=== PATIENT | female | born 1985 | race Caucasian/White ===

== ENCOUNTER 2016-07-17 23:01 | Emergency (ER) | payer MEDICAID ==
[~2016-07-17] VITALS: Ht 149.9 cm; Wt 72.0 kg
[~2016-07-17 23:01] MED LIST: IOHEXOL-350 100 ML BOTTLE ONE; SODIUM CHLORIDE 0.9% 10ML VIAL ONE
[2016-07-18] MEDS ORDERED: SODIUM CHLORIDE 0.9% 1,000 ML IV ONE (02:45)
[2016-07-18] MEDS ORDERED: ONDANSETRON HCL 4MG/2ML VIAL IV ONE (02:45)
[2016-07-18] MEDS ORDERED: MORPHINE SULFATE 4 MG/ML CPJ (NOT FOR IM USE) IV ONE ×3 (02:45→04:30)
[2016-07-18 03:03] LABS: BASOPHILS % 1.3 % (0.0-2.0); DIFFERENTIAL COMMENT 0; EOSINOPHILS % 0.4 % (0.0-5.0); HEMATOCRIT. 35.6 % (36.0-48.0); HEMOGLOBIN. 12.1 g/dL (12.0-16.0); LYMPHOCYTES % 21.2 % (20.0-50.0); MEAN CORPUSCULAR HEMOGLOBIN 24.8 pg (28.0-32.0); MEAN CORPUSCULAR HGB CONC 33.9 g/dL (31.0-37.0); MEAN CORPUSCULAR VOLUME 73.3 fL (81.0-99.0); MEAN PLATELET VOLUME 8.6 fl (7.4-10.4); MONOCYTES % 4.2 % (2.0-8.0); NEUTROPHILS % 72.9 % (40.0-76.0); PLATELET 413 x1000/uL (130-400); RED BLOOD CELL COUNT 4.86 mill/uL (4.2-5.4); RED CELL DISTRIBUTION WIDTH 17.2 % (11.6-14.6); WHITE BLOOD COUNT 9.8 x1000/uL (4.5-11.0)
[2016-07-18 03:10] LABS: HCG SCREEN NEGATIVE
[2016-07-18 03:14] LABS: D-DIMER 0.72 mg/L FEU (<0.50); PROTHROMBIN TIME 10.7 sec
[2016-07-18 03:43] LABS: ALANINE AMINOTRANSFERASE 16 IU/L (13-61); ALBUMIN 3.4 g/dL (3.4-5.0); ANION GAP 13; CALCIUM 8.6 mg/dL (8.5-10.1); CARBON DIOXIDE 24 mEq/L (21-32); CHLORIDE 108 mEq/L (98-107); INDEX HEMOLYSI 1 (1-3); INDEX ICTERIC 1 (1-4); INDEX LIPEMIC 1 (1-3); LIPASE 100 IU/L (73-393); NT PRO B-TYPE NATRIURETIC PEP 34 pg/mL (5-125); UREA NITROGEN BLOOD 7 mg/dL (7-21); eGFR > 60 mL/min (>60)
[2016-07-18] MEDS ORDERED: IBUPROFEN 600MG TABLET PO ONE (06:15)
[2016-07-18] MEDS ORDERED: IPRATROPIUM/ALBUTEROL 0.5-3(2.5)MG/3ML NEB HHN ONE (06:15)
[2016-07-18] MEDS ORDERED: HYDROCODONE/ACETAMINOPHEN 5/325MG TABLET PO ONE (07:45)
[2016-07-18 08:27] VITALS: BP 121/76
== END 2016-07-18 08:29 | disposition home or self-care (01) ==
LOC: ER 23:31
DX: J45.909 Unspecified asthma, uncomplicated (principal); R10.12 Left upper quadrant pain; M94.0 Chondrocostal junction syndrome [Tietze]; M79.605 Pain in left leg; F17.210 Nicotine dependence, cigarettes, uncomplicated; F12.90 Cannabis use, unspecified, uncomplicated; Z90.49 Acquired absence of other specified parts of digestive tract
CPT/HCPCS: 36415; 71010; 71275; 80053; 83690; 83880; 84703; 85025; 85379; 85610; 85730; 93005; 93971; 94640; 96361; 96374; 96375; 96376; 99285; A4216; J2270; J2405; Q9967; Z7610; J7620